=== PATIENT | female | born 1960 | race Caucasian/White ===

== ENCOUNTER 2025-03-31 23:21 | Emergency (ER) | payer MEDICAID, OTHER ==
[~2025-03-31] VITALS: Ht 157.5 cm; Wt 72.6 kg
[2025-03-31 23:31] VITALS: BP 167/95; PULSE 68; RESP 12; TEMP 98.1; O2SAT 98
--- NOTE | 2025-03-31 23:50 | ED.PDOC ---
GI ASSESSMENT HPI Comments 65 year-old female presents to the ED via EMS with a chief complaint of LQ abdominal pain with N/V for X3 hours today. Patient reports feeling abdominal "pressure" like sensation, radiating to back, and worsening over time. Patient reports experiencing this abdominal pain before, usually at night before bed. Patient reports a PMHx of Kidney Stones and a Social Hx of Cigarettes and ETOH intoxification. Patient otherwise has no further complaints or modifying factors at this time. Pt denies symptoms of dysuria, hematuria, weakness, chills, constipation, or diarrhea. Chief Complaint: Abdominal Pain Time Seen by MD: 23:50 Reviewed Notes: Medications, Allergies Allergies: Coded Allergies: NO KNOWN ALLERGIES (Unverified , 03/31/25) Information Source: Patient Mode of Arrival: EMS Duration: Since onset Severity: Mild Pain Location: RLQ, LLQ Associated sign and symptoms: Nausea, Vomiting, Abdominal Pain Past Medical History PAST MEDICAL HISTORY: Kidney Stones Surgical History: Denies all surgeries [employer]PER[employer]OR History: No Pertinent [employer]PER[employer]OR History Family History Family History: Reviewed,noncontributory to illness, No family hx of Cancer, No family hx of DM, No family hx of Heart royce, No family hx of HTN, No family hx ofKidney royce, No family hx of Liver royce, No family hx of Lung royce, No family hx of Stroke Social History Smoker: Cigarettes Alcohol: Occasionally Drugs: Denies Drug Use Lives In: Home Constitutional: denies: chills, diaphoresis, fatigue, fever, malaise, sweats, weakness, others EENTM: denies: blurred vision, double vision, ear bleeding, ear discharge, ear drainage, ear pain, ear ringing, eye pain, eye redness, hearing loss, mouth pain, mouth swelling, nasal discharge, nose bleeding, nose congestion, nose pain, photophobia, tearing, throat pain, throat swelling, voice changes, others Respiratory: denies: cough, hemoptysis, orthopnea, SOB at rest, shortness of breath, SOB with excertion, stridor, wheezing, others Cardiovascular: denies: chest pain, dizzy spells, diaphoresis, Dyspnea on exertion, edema, irregular heart beat, left arm pain, lightheadedness, palpitations, PND, syncope, others Gastrointestinal: reports: abdominal pain, nausea, vomiting; denies: abdomen distended, blood streaked bowels, constipated, diarrhea, dysphagia, difficulty swallowing, hematemesis, melena, poor appetite, poor fluid intake, rectal bleeding, rectal pain, others Genitourinary: denies: abnormal vagina bleeding, burning, dyspareunia, dysuria, flank pain, frequency, hematuria, incontinence, pain, , vagina discharge, urgency, others Neurological: denies: dizziness, fainting, headache, left sided numbness, left sided weakness, numbness, paresthesia, pre-existing deficit, right sided numbness, right sided weakness, seizure, speech problems, tingling, tremors, weakness, others Musculoskeletal: denies: back pain, gout, joint pain, joint swelling, muscle pain, muscle stiffness, neck pain, others Integumetry: denies: bruises, change in color, change in hair/nails, dryness, laceration, lesions, lumps, rash, wounds, others Allergic/Immunocompromised: denies: Difficulty Healing, Frequent Infections, Hives, Itching, others Hematologic/Lymphatic: denies: anemia, blood clots, easy bleeding, easy bruising, swollen glands, others Endocrine: denies: excessive hunger, excessive sweating, excessive thirst, excessive urination, flushing, intolerance to cold, intolerance to heat, unexplained weight gain, unexplained weight loss, others Psychiatric: denies: anxiety, bipolar disorder, depression, hopeless, panic disorder, schizophrenia, sleepless, suicidal, others All Other Systems: Reviewed and Negative Physical Exam General Appearance: No Apparent Distress, Normal HEENT: Normal ENT Inspection, Pharynx Normal, TMs Normal Neck: Full Range of Motion, Non-Tender, Normal, Normal Inspection Respiratory: Chest Non-Tender, Lungs Clear, No Accessory Muscle Use, No Resp iratory Distress, Normal Breath Sounds Cardiovascular: No Edema, No JVD, No Murmur, No Gallop, Normal Peripheral Pulses, Regular Rate/Rhythm Breast Exam: Deferred Gastrointestinal: No Organomegaly, Non Tender, No Pulsatile Mass, Normal Bowel Sounds, Soft Genitalia: Deferred Pelvic: Deferred Rectal: Deferred Extremities: No calf tenderness, Normal capillary refill, Normal inspection, Normal range of motion, Non-tender, No pedal edema Musculoskeletal : Apperance: Normal Neurologic: Alert, legal office administrator II-XII nml as Tested, No Motor Deficits, Normal Affect, Normal Mood, No Sensory Deficits Cerebellar Function: Normal Reflexes: Normal Skin: Dry, Normal Color, Warm Lymphatic: No Adenopathy Was a procedure done? Was a procedure done?: No GI differential Dx Differential Diagnosis: Constipation, Gastritis/PUD, Gastroenteritis, Pancreatitis, UTI, Urolithiasis, Dehydration, Food Poisoning, Bacterial, Parasitic, Viral X-Ray, Labs, Meds, VS Vital Signs Date Time Temp Pulse Resp B/P (MAP) Pulse Ox O2 Delivery O2 Flow Rate FiO2 03/31/25 23:31 98.1 68 12 167/95 98 98.1 X-Ray, Labs, Meds, VS Comment Previous history reviewed: Kidney Stones The following tests were ordered, and results were reviewed by me: N/A Additional Information was gathered from interviewing the following independent historians: Nurse Notes / Patient I reviewed and agreed with the following test results read by other providers: N/A I discussed treatment and results with medical personnel and: Patient Comprehensive systems review obtained and negative except for what is stated in the HPI. Time of 1ST Reevaluation: 00:36 Reevaluation 1ST: Unchanged Time of 2ND Reevaluation: 02:05 Reevaluation 2ND: eloped Patient Education/Counseling: Diagnosis, Treatment, Prognosis, Need For Follow Up Family Education/Counseling: No Family Present Comments pt informed me that she had called her to pick her up as soon as i saw her, but i asked her to stay. however, pt left after i initially assessed her SEPSIS Sepsis Screen Physician Orders Complete Blood Count (04/01/25 01:28) Ct Ab Pel Wo Con-No Oral Or Iv (04/01/25 01:28) Basic Metabolic Panel (04/01/25 01:28) Urinalysis (04/01/25 01:28) Sodium Chloride 0.9% (04/01/25 01:30) Vital Signs Date Time Temp Pulse Resp B/P (MAP) Pulse Ox O2 Delivery O2 Flow Rate FiO2 03/31/25 23:31 98.1 68 12 167/95 98 98.1 Departure 1 Departure Time of Disposition: 02:07 Impression: Primary Impression: Flank pain Disposition: 07 LEFT AWOL/ELOPED Condition: Other (unknown) Critical Care Note Critical Care Time?: No Stability Stability form required: No Heart Score Heart Score: Heart Score Response (Comments) Value History N/A 0 EKG N/A 0 Age N/A 0 Risk Factors N/A 0 Troponin N/A 0 Total 0 I personally scribed for SERGEI MILLARD MD ([facility]) on 03/31/25 at 23:50. Electronically submitted by Arely Gale ([employer]). I personally scribed for SERGEI MILLARD MD ([facility]) on 04/01/25 at 01:01. Electronically submitted by Arely Gale ([employer]). I personally scribed for SERGEI MILLARD MD ([facility]) on 04/01/25 at 01:02. Electronically submitted by Arely Gale ([employer]). SERGEI MILLARD MD Mar 31, 2025 23:50
[2025-04-01] MEDS ORDERED: SODIUM CHLORIDE 0.9% 500 ML IV ONE (01:30)
[2025-04-01] MEDS ORDERED: KETOROLAC TROMETH 30 MG/ML 1ML VIAL IV ONE (01:30)
[2025-04-01] MEDS ORDERED: ONDANSETRON HCL 4 MG/2 ML VIAL IV ONE (01:30)
== END 2025-04-01 02:16 | disposition left against medical advice (07) ==
LOC: ER 23:21 → EDBD 23:21 → ER 04-01 02:16
DX: R10.32 Left lower quadrant pain (principal); F10.90 Alcohol use, unspecified, uncomplicated; F17.210 Nicotine dependence, cigarettes, uncomplicated; Z87.442 Personal history of urinary calculi